=== PATIENT | female | born 1950 | race American Indian/Alaskan Native ===

== ENCOUNTER 2018-08-07 07:12 | Inpatient (IN) | payer MEDICARE ==
[2018-08-07 07:12] VITALS: BMI 40.8
[2018-08-07] MEDS ORDERED: Sodium Chloride 0.9% 1,000 ML IV STA (07:35)
[2018-08-07 07:50] LABS: BASO # 0.01 K/mm3 (0.0-2.0); BASO % 0.2 % (0.0-3.0); EOS # 0.2 (0.0-0.7); EOS % 3.9 % (1.5-5.0); HEMOGLOBIN 10.5 g/dL (12.0-16.0); LYMPH # 0.8 (1.2-3.4); LYMPH % 14.3 % (22.0-35.0); MEAN CELL VOLUME 85.5 fl (80.0-105.0); MEAN CORPUSCULAR HEMOGLOBIN 28.2 pg (25.0-35.0); MEAN CORPUSCULAR HGB CONC 32.9 g/dl (31.0-37.0); MEAN PLATELET VOLUME 10.2 fl (7.0-11.0); MONO # 0.6 (0.1-0.6); MONO % 11.1 % (1.0-6.0); RBC 3.73 10^6/uL (3.5-6.1); RED CELL DISTRIBUTION WIDTH 13.1 % (11.5-14.5); WHITE BLOOD COUNT 5.3 10^3/uL (4.5-11.0)
[2018-08-07 08:05] LABS: ALB/GLOB RATIO 1.3 (1.1-1.8); ALBUMIN 4.1 g/dL (3.0-4.8); CALCIUM 9.7 mg/dL (8.4-10.5)
--- NOTE | 2018-08-07 08:10 | ED PDOC ---
Arrival/HPI - General Chief Complaint: GI Problem Time Seen by Provider: 08/07/18 07:20 Historian: Patient - History of Present Illness Narrative History of Present Illness (Text): 08/07/18 08:01 67F w/ h/o hypertension, Iron deficient anemia, and CHF presenting to the Emergency Room with complaints of nausea, vomiting, and diarrhea since 12 days. Patient reports eating chicken prior to onset of symptoms but states no one else in the family became sick after similar food intake. Patient attempted to alleviate her symptoms with soup and Gatorade with minimal improvement. According to the patient, her last episode of diarrhea was 3 days ago and has been experiencing soft stool since then. She notes developing abdominal sor eness, lightheadedness and chills last night, prompting her to present to the Ed for evaluation. Patient denies any fevers, headache, dizziness, chest pain, shortness of breath, dyspnea on exertion, cough, diaphoresis, abdominal pain, blood in stool, hematemesis, back pain, neck pain, or any other complaints. PMD: Dr. Isha Park [employer] Supervisor: Dr. Wilson Poultry Debeaker: Dr. Crisostomo Time/Duration: > week Symptom Onset: Gradual Symptom Course: Unchanged Activities at Onset: Light Context: Home Past Medical History - Provider Review Nursing Documentation Reviewed: Yes - Infectious Disease Hx of Infectious Diseases: None - Tetanus Immunization Tetanus Immunization: Unknown - Cardiac Hx Congestive Heart Failure: Yes Hx Hypertension: Yes - Pulmonary Hx Respiratory Disorders: No - Neurological Hx Neurological Disorder: No - HEENT Hx Cataracts: Yes Hx Glaucoma: Yes - Renal Hx Renal Disorder: No - Endocrine/Metabolic Hx Endocrine Disorders: No - Hematological/Oncological Hx Blood Disorders: No - Integumentary Hx Dermatological Disorder: No - Musculoskeletal/Rheumatological Hx Falls: No - Gastrointestinal Hx Gastrointestinal Disorders: No - Genitourinary/Gynecological Hx Genitourinary Disorders: No - Psychiatric Hx Psychophysiologic Disorder: No Hx Substance Use: No - Suicidal Assessment Feels Threatened In Home Enviroment: No Family/Social History - Physician Review Nursing Documentation Reviewed: Yes Family/Social History: No Known Family HX Smoking Status: Never Smoked Hx Alcohol Use: No Hx Substance Use: No Allergies/Home Meds Allergies/Adverse Reactions: Allergies banana Allergy (Intermediate, Verified 08/07/18 14:21) SWELLING Home Medications: Home Meds Medication Instructions Recorded Confirmed Aspirin [Aspirin Chewable] 81 mg PO DAILY 07/25/18 08/07/18 Calcitriol [Rocaltrol] 0.5 mcg PO DAILY 07/25/18 08/07/18 Ergocalciferol (Vitamin D2) 1 cap PO MERRY 07/25/18 08/07/18 [Vitamin D2] Furosemide [Lasix] 40 mg PO DAILY 07/25/18 08/07/18 Iron Carb,Gl/FA/B12/C/Docusate 1 tab PO BID 07/25/18 08/07/18 [Ferralet 90 Tablet] Isosorbide Mononitrate [Imdur] 60 mg PO DAILY 07/25/18 08/07/18 Olmesartan [BenicarNf] 1 tab PO DAILY 07/25/18 08/07/18 amLODIPine [Norvasc] 10 mg PO DAILY 07/25/18 08/07/18 hydrALAZINE [Apresoline] 100 mg PO TID 07/25/18 08/07/18 Review of Systems - Physician Review All systems were reviewed & negative as marked: Yes - Review of Systems Constitutional: absent: Fevers Eyes: absent: Vision Changes Respiratory: absent: SOB, Cough Cardiovascular: absent: Chest Pain, TRAN Gastrointestinal: Diarrhea, Nausea, Vomiting. absent: Abdominal Pain, Stool Changes, Hematemesis Genitourinary Female: absent: Dysuria, Urine Output Changes Musculoskeletal: absent: Back Pain, Neck Pain Skin: absent: Rash Neurological: absent: Headache, Dizziness, Focal Weakness Endocrine: absent: Diaphoresis Psychiatric: absent: Anxiety Physical Exam Vital Signs Reviewed: Yes Vital Signs Temp Pulse Resp BP Pulse Ox 08/07/18 07:19 98.9 F 99 H 18 151/82 H 96 Temperature: Afebrile Blood Pressure: Normal Pulse: Regular Respiratory Rate: Normal Appearance: Positive for: Well-Appearing, Non-Toxic, Comfortable Pain Distress: None Mental Status: Positive for: Alert and Oriented X 3 - Systems Exam Head: Present: Atraumatic, Normocephalic Pupils: Present: PERRL Extroacular Muscles: Present: EOMI Conjunctiva: Present: Normal Mouth: Present: Dry Respiratory/Chest: Present: Clear to Auscultation, Good Air Exchange. No: Respiratory Distress, Accessory Muscle Use Cardiovascular: Present: Regular Rate and Rhythm, Murmurs (Blowing diastolic murmur, best heard around left lower sternum), Normal S1, S2 Abdomen: Present: Tenderness (Left upper quadrant ). No: Distention, Peritoneal Signs Back: Present: Normal Inspection Upper Extremity: Present: Normal Inspection. No: Cyanosis, Edema Lower Extremity: Present: Normal Inspection. No: Edema Neurological: Present: GCS=15, CN II-XII Intact, Speech Normal Skin: Present: Warm, Dry, Normal Color. No: Rashes Psychiatric: Present: Alert, Oriented x 3, Normal Insight, Normal Concentration Medical Decision Making ED Course and Treatment: 08/07/18 07:34 Impression: 67 year old female presents to the ED for evaluation of nausea, vomiting and diarrhea since 12 days. Differential Diagnosis included but are not limited to: Plan: -- Labs -- EKG -- Chest X-ray -- Reglan -- IV Fluids -- C-diff Toxin and Antigen -- Urine Culture -- Urinalysis --Toradol --Pepcid --CT a/p -- Reassess and disposition Prior Visits: Notes and results from previous visits were reviewed. Progress Notes: 08/07/18 09:32 Labs reviewed with patient noted to show no evidence leukocytosis or anemia worsened from baseline. Slightly elevated BNP was noted, but lower than baseline. Patient reassessed and still reports soreness in LUQ, but is reluctant to proceed with CT scan. She desires to attempt conservative therapy with medications and would rather follow up with a GI specialist. 08/07/18 10:35 Dr. Veronica Park(PCP) at the bedside stating patient should have CT scan performed and will contact Dr. Case(GI) for consult. Patient agreeable to CT. 08/07/18 12:[address] a/p results which is consistent with findings for gastroenteritis and states patient should stay for 24-48hrs for IV hydration. He states he discussed with Dr. Case who agrees with patient staying in the h ospital for further observation. He requests Dr. Crisostomo(nephrology) to called for renal. - Lab Interpretations Lab Results: 08/07/18 07:40 08/07/18 07:40 Lab Results 08/07/18 07:40: Sodium 141, Potassium 3.8, Chloride 106, Carbon Dioxide 24, Anion Gap 15, BUN 53 H, Creatinine 4.1 H, Est GFR ( Amer) 13, Est GFR (Non-Af Amer) 11, Random Glucose 106, Calcium 9.7, Magnesium 1.9, Total Bilirubin 0.7, AST 21, ALT 8, Alkaline Phosphatase 68, Troponin I 0.04 D, NT-Pro-B Natriuret Pep 1180 H, Total Protein 7.4, Albumin 4.1, Globulin 3.3, Albumin/Globulin Ratio 1.3 08/07/18 07:40: WBC 5.3, RBC 3.73, Hgb 10.5 L, Hct 31.9 L, MCV 85.5, MCH 28.2, MCHC 32.9, RDW 13.1, Plt Count 208, MPV 10.2, Neut % (Auto) 70.5 H, Lymph % (Auto) 14.3 L, [place] % (Auto) 11.1 H, Eos % (Auto) 3.9, Baso % (Auto) 0.2, Lymph # (Auto) 0.8 L, [place] # (Auto) 0.6, Eos # (Auto) 0.2, Baso # (Auto) 0.01, Absolute Neuts (auto) 3.76 I have reviewed the lab results: Yes - RAD Interpretation Narrative RAD Interpretations (Text): 08/07/18 08:26 Chest X-ray reviewed by radiologist, shows: FINDINGS: LUNGS: No active pulmonary disease. PLEURA: No significant pleural effusion identified, no pneumothorax apparent. CARDIOVASCULAR: Calcific atherosclerotic changes are seen related to the thoracic aorta. Stable cardiomegaly. No pulmonary vascular congestion. OSSEOUS STRUCTURES: No significant abnormalities. VISUALIZED UPPER ABDOMEN: Normal. OTHER FINDINGS: None. IMPRESSION: No interval acute cardiopulmonary disease appreciated. Cardiomegaly unchanged. No pulmonary vascular congestion. 08/07/18 12:28 CT of Abdomen/pelvis reviewed by radiologist, shows: FINDINGS: LOWER THORAX: Cardiomegaly. No pulmonary vascular congestion, pleural or pericardial effusion. LIVER: Unremarkable. No gross lesion or ductal dilatation. GALLBLADDER AND BILE DUCTS: Unremarkable. PANCREAS: Unremarkable. No gross lesion or ductal dilatation. SPLEEN: Unremarkable. ADRENALS: Unremarkable. No mass. KIDNEYS AND URETERS: Unremarkable. No hydronephrosis. No solid mass. VASCULATURE: Unremarkable. No aortic aneurysm. No aortic atherosclerotic calcification or mural plaque present. BOWEL: Stomach is collapsed not well evaluated. Further, evaluation of the gastrointestinal tract is limited due to the lack of oral contrast administration. No bowel obstruction evident. Uncomplicated sigmoid dive rticular disease appreciated. APPENDIX: Unremarkable. Normal appendix. PERITONEUM: Unremarkable. No free fluid. No free air. LYMPH NODES: Unremarkable. No enlarged lymph nodes. BLADDER: Unremarkable. REPRODUCTIVE: Unremarkable. BONES: No acute fracture. OTHER FINDINGS: None. IMPRESSION: No acute abdomen or pelvis findings. No radiodense urolithiasis, perinephric fluid collection or obstructive uropathy is appreciate bilaterally. The bilateral ureters appear normal caliber overall. Sigmoid diverticulosis without diverticulitis. No significant interval changes compared prior CT 01/20/2014. Radiology Orders: 08/07/18 07:34 CHEST PORTABLE [RAD] Stat Sorter [employer]: Radiologist - EKG Interpretation EKG Interpretation (Text): 08/07/18 07:24 EKG reviewed, shows NSR@92 bpm, LVH, LBBB, No ST elevations. Interpreted by ED Physician: Yes Type: 12 lead EKG - Medication Orders Current Medication Orders: Sodium Chloride (Sodium Chloride 0.9%) 1,000 mls @ 999 mls/hr IV .Q1H1M STA Stop: 08/07/18 08:35 Last Admin: 08/07/18 07:49 Dose: 999 mls/hr eMAR Start Stop Document 08/07/18 07:49 BB (Rec: 08/07/18 07:51 BB [id number]) Intravenous Solution Start Date 08/07/18 Start Time 07:51 Discontinued Medications Metoclopramide HCl (Reglan) 10 mg IVP STAT STA Stop: 08/07/18 07:36 Last Admin: 08/07/18 07:52 Dose: 10 mg IVP Administration Document 08/07/18 07:52 BB (Rec: 08/07/18 07:52 BB [id number]) Charges for Administration # of IVP Administrations 1 - Scribe Statement The provider has reviewed the documentation as recorded by the Scribe Franck Jiang. All medical record entries made by the Angelitaibchristopher were at my direction and personally dictated by me. I have reviewed the chart and agree that the record accurately reflects my personal performance of the history, physical exam, medical decision making, and the department course for this patient. I have also personally directed, reviewed, and agree with the discharge instructions and disposition. Disposition/Present on Arrival - Present on Arrival Any Indicators Present on Arrival: No History of DVT/PE: No History of Uncontrolled Diabetes: No Urinary Catheter: No History of Decub. Ulcer: No History Surgical Site Infection Following: None - Disposition Have Diagnosis and Disposition been Completed?: Yes Diagnosis: Gastroenteritis Disposition: HOSPITALIZED Disposition Time: 12:30 Patient Plan: Admission Condition: FAIR
[2018-08-07 08:14] LABS: TROPONIN I 0.04 ng/mL
--- NOTE | 2018-08-07 08:15 | RAD ---
Date of service: 08/07/2018 HISTORY: nausea emesis COMPARISON: Portable chest 01/11/2014. TECHNIQUE: 1 view obtained. FINDINGS: LUNGS: No active pulmonary disease. PLEURA: No significant pleural effusion identified, no pneumothorax apparent. CARDIOVASCULAR: Calcific atherosclerotic changes are seen related to the thoracic aorta. Stable cardiomegaly. No pulmonary vascular congestion. OSSEOUS STRUCTURES: No significant abnormalities. VISUALIZED UPPER ABDOMEN: Normal. OTHER FINDINGS: None. IMPRESSION: No interval acute cardiopulmonary disease appreciated. Cardiomegaly unchanged. No pulmonary vascular congestion.
[2018-08-07 09:46] LABS: URINE BILIRUBIN NEGATIVE (NEGATIVE); URINE BLOOD NEGATIVE (NEGATIVE); URINE GLUCOSE (UA) NEGATIVE (NEGATIVE); URINE LEUKOCYTE ESTERASE SMALL Leu/uL (NEGATIVE); URINE PROTEIN NEGATIVE mg/dL (<30 mg/dL); URINE UROBILINOGEN 0.2 E.U./dL (<1 E.U./dL)
[2018-08-07 09:47] LABS: URINE COLOR YELLOW (YELLOW)
[2018-08-07 09:54] LABS: URINE APPEARANCE SL CLOUDY (CLEAR); URINE BACTERIA MOD /hpf; URINE WBC 25 - 30 /hpf (0-6)
--- NOTE | 2018-08-07 12:09 | CT ---
Date of service: 08/07/2018 PROCEDURE: CT Abdomen and Pelvis without intravenous contrast HISTORY: LUQ pain COMPARISON: Unenhanced abdomen pelvis CT 01/20/2014. TECHNIQUE: Helical CT of the abdomen and pelvis was performed without oral or intravenous contrast as per referring physician request. Coronal and sagittal reformats were generated. Radiation dose: Total exam DLP = 1103.85 mGy-cm. This CT exam was performed using one or more of the following dose reduction techniques: Automated exposure control, adjustment of the mA and/or kV according to patient size, and/or use of iterative reconstruction technique. FINDINGS: LOWER THORAX: Cardiomegaly. No pulmonary vascular congestion, pleural or pericardial effusion. LIVER: Unremarkable. No gross lesion or ductal dilatation. GALLBLADDER AND BILE DUCTS: Unremarkable. PANCREAS: Unremarkable. No gross lesion or ductal dilatation. SPLEEN: Unremarkable. ADRENALS: Unremarkable. No mass. KIDNEYS AND URETERS: Unremarkable. No hydronephrosis. No solid mass. VASCULATURE: Unremarkable. No aortic aneurysm. No aortic atherosclerotic calcification or mural plaque present. BOWEL: Stomach is collapsed not well evaluated. Further, evaluation of the gastrointestinal tract is limited due to the lack of oral contrast administration. No bowel obstruction evident. Uncomplicated sigmoid diverticular disease appreciated. APPENDIX: Unremarkable. Normal appendix. PERITONEUM: Unremarkable. No free fluid. No free air. LYMPH NODES: Unremarkable. No enlarged lymph nodes. BLADDER: Unremarkable. REPRODUCTIVE: Unremarkable. BONES: No acute fracture. OTHER FINDINGS: None. IMPRESSION: No acute abdomen or pelvis findings. No radiodense urolithiasis, perinephric fluid collection or obstructive uropathy is appreciate bilaterally. The bilateral ureters appear normal caliber overall. Sigmoid diverticulosis without diverticulitis. No significant interval changes compared prior CT 01/20/2014.
[2018-08-07] MEDS ORDERED: Ergocalciferol 50,000 Intl Units Cap PO SCH (16:00)
[2018-08-07] MEDS ORDERED: Pneumococcal 23-Valent Vaccine IM ONE (18:25)
[2018-08-07] MEDS ORDERED: Influenza Vaccine 60 mcg/0.5 mL SYR (4YR UP) IM ONE (18:25)
--- NOTE | 2018-08-07 19:18 | CARD ---
APPROVED REPORT Date of service: 08/07/2018 EKG Measurement Heart [id number] <Conclusion> Sinus rhythm with 1st degree AV block Left axis deviation Intraventricular conduction delay of LBBB type Abnormal ECG
--- NOTE | 2018-08-07 20:47 | CP.PCM.CON ---
<KalReg choe - Last Filed: 08/07/18 21:08> History of Present Illness - History of Present Illness History of Present Illness: Reg Bowden PGY2 GI Consult Note for Dr. Case Reason for consult: gastroenteritis Ms. Lopez is a 67 year old female with a PMH of CHFrEF, HTN, Iron deficiency anemia and CKD who is admitted for nausea/vomiting and diarrhea for 12 days, that has worsened in the last few days. She states she has moderate abdominal discomfort associated with the symptoms. She denies any fevers/chills. Patient states she had some chicken prior to the symptoms but no one else who ate the chicken experienced similar symptoms. 12-pt ROS was reviewed and is otherwise unremarkable. PMD: Dr. Park PMH: as above PSH: cataracts Meds: as per MAR, reviewed Allergies: bananas SHx: denies drug use, EtOH or tobacco use FHx: non-contributory Review of Systems - Review of Systems All systems: reviewed and no additional remarkable complaints except (as per HPI) Past Patient History - Infectious Disease Hx of Infectious Diseases: None - Tetanus Immunizations Tetanus Immunization: Unknown - Past Social History Smoking Status: Never Smoked Alcohol: None Drugs: Denies - CARDIAC Hx Cardiac Disorders: Yes Hx Congestive Heart Failure: Yes Hx Hypertension: Yes - PULMONARY Hx Respiratory Disorders: No - NEUROLOGICAL Hx Neurological Disorder: No - HEENT Hx HEENT Problems: Yes Hx Cataracts: Yes (BILATERAL EYE. LEFT EYE HAD SX.R HAS CATARACT. BLURRY VISION) Hx Glaucoma: Yes - RENAL Hx Chronic Kidney Disease: No - ENDOCRINE/METABOLIC Hx Endocrine Disorders: No - HEMATOLOGICAL/ONCOLOGICAL Hx Blood Disorders: Yes Hx Anemia: Yes (IRON DEFICIENCY ANEMIA.SEES DR. VIDALES,GETS IRON INFUSIONS.LAST INF. 08-04-18) - INTEGUMENTARY Hx Dermatological Problems: No - MUSCULOSKELETAL/RHEUMATOLOGICAL Hx Musculoskeletal Disorders: No Hx Falls: No - GASTROINTESTINAL Hx Gastrointestinal Disorders: Yes (GASTROENTERITIS 08-07-18) Other/Comment: DEHYDRATION WITH 12 D OF N/V AND DIARRHEA. - GENITOURINARY/GYNECOLOGICAL Hx Genitourinary Disorders: No - PSYCHIATRIC Hx Psychophysiologic Disorder: No Hx Substance Use: No - SURGICAL HISTORY Hx Surgeries: Yes (BILATERAL EYE SURGERY.) Meds Allergies/Adverse Reactions: Allergies Allergy/AdvReac Type Severity Reaction Status Date / Time banana Allergy Intermediate SWELLING Verified 08/07/18 14:21 - Medications Medications: Current Medications Amlodipine Besylate (Norvasc) 10 mg PO DAILY [facility] Calcitriol (Rocaltrol) 0.25 mcg PO DAILY [facility] Ergocalciferol (Drisdol 50,000 Intl Units Cap) 1 cap PO Q7D [facility] Last Admin: 08/07/18 19:28 Dose: Not Given Home Med (Home Med) 2 unit PO DAILY [facility] Home Med (Home Med) 1 unit PO DAILY [facility] Hydralazine HCl (Apresoline) 100 mg PO TID [facility] Last Admin: 08/07/18 19:28 Dose: Not Given Isosorbide Mononitrate (Imdur Er) 30 mg PO DAILY [facility] Ondansetron HCl (Zofran Inj) 4 mg IVP Q8H PRN PRN Reason: Nausea/Vomiting Timolol Maleate (Timoptic 0.5% Ophth Soln) 1 drop OU BID [facility] Physical Exam - Constitutional Appears: Well, Non-toxic, No Acute Distress - Head Exam Head Exam: ATRAUMATIC, NORMAL INSPECTION, NORMOCEPHALIC - Eye Exam Eye Exam: EOMI, Normal appearance, PERRL Pupil Exam: NORMAL ACCOMODATION, PERRL - ENT Exam ENT Exam: Mucous Membranes Moist, Normal Exam - Neck Exam Neck exam: Positive for: Normal Inspection - Respiratory Exam Respiratory Exam: NORMAL BREATHING PATTERN. absent: Respiratory Distress - Cardiovascular Exam Cardiovascular Exam: RRR, +S1, +S2 - GI/Abdominal Exam GI & Abdominal Exam: Normal Bowel Sounds, Soft, Tenderness (diffuse) - Extremities Exam Extremities exam: Positive for: full ROM, normal inspection - Back Exam Back exam: FULL ROM, NORMAL INSPECTION - Neurological Exam Neurological exam: Alert, Oriented x3 - Skin Skin Exam: Dry, Intact, Normal Color, Warm Results - Vital Signs Recent Vital Signs: Last Vital Signs Temp 98.9 F 08/07/18 07:19 Pulse 59 L 08/07/18 18:02 Resp 18 08/07/18 18:02 BP 115/50 L 08/07/18 12:23 Pulse Ox 95 08/07/18 12:23 - Labs Result Diagrams: 08/07/18 07:40 08/07/18 07:40 Labs: Laboratory Results - last 24 hr 08/07/18 08/07/18 08/07/18 07:40 07:40 09:30 WBC 5.3 RBC 3.73 Hgb 10.5 L Hct 31.9 L MCV 85.5 MCH 28.2 MCHC 32.9 RDW 13.1 Plt Count 208 MPV 10.2 Neut % (Auto) 70.5 H Lymph % (Auto) 14.3 L [place] % (Auto) 11.1 H Eos % (Auto) 3.9 Baso % (Auto) 0.2 Lymph # (Auto) 0.8 L [place] # (Auto) 0.6 Eos # (Auto) 0.2 Baso # (Auto) 0.01 Absolute Neuts (auto) 3.76 Sodium 141 Potassium 3.8 Chloride 106 Carbon Dioxide 24 Anion Gap 15 BUN 53 H Creatinine 4.1 H Est GFR ( Amer) 13 Est GFR (Non-Af Amer) 11 Random Glucose 106 Calcium 9.7 Magnesium 1.9 Total Bilirubin 0.7 AST 21 ALT 8 Alkaline Phosphatase 68 Troponin I 0.04 D NT-Pro-B Natriuret Pep 1180 H Total Protein 7.4 Albumin 4.1 Globulin 3.3 Albumin/Globulin Ratio 1.3 Urine Color Yellow Urine Appearance Sl cloudy Urine pH 6.0 Ur Specific [place] 1.015 Urine Protein Negative Urine Glucose (UA) Negative Urine Ketones Negative Urine Blood Negative Urine Nitrate Negative Urine Bilirubin Negative Urine Urobilinogen 0.2 Ur Leukocyte Esterase Small H Urine RBC None Urine WBC 25 - 30 H Ur Epithelial Cells 6 - 8 H Urine Bacteria Mod Assessment & Plan - Assessment and Plan (Free Text) Assessment: 67 year old female with a PMH of CHFrEF, HTN, Iron deficiency anemia and CKD who is admitted for nausea/vomiting and diarrhea for 12 days, that has worsened in the last few days. GI consulted for gastroenteritis. CXR reveals cardiomegaly. EKG shows NSR w/ 1st degree heart block and LBBB. CT abd/pelvis shows sigmoid diverticulosis w/o diverticulitis. BNP is elevated, and there are no signs of sepsis at this time. Plan: - start CLD, advance as tolerated - monitor for BM's - stool for cdiff and stool cultures - blood and urine cultures drawn - recommend gentle hydration - can monitor off abx at this time - further recs per Dr. Case Case was reviewed and discussed with Dr. Case <Dre Case V - Last Filed: 08/08/18 00:09> Meds - Medications Medications: Current Medications Amlodipine Besylate (Norvasc) 10 mg PO DAILY [facility] Calcitriol (Rocaltrol) 0.25 mcg PO DAILY [facility] Ergocalciferol (Drisdol 50,000 Intl Units Cap) 1 cap PO Q7D [facility] Last Admin: 08/07/18 19:28 Dose: Not Given Home Med (Home Med) 2 unit PO DAILY [facility] Home Med (Home Med) 1 unit PO DAILY [facility] Hydralazine HCl (Apresoline) 100 mg PO TID [facility] Last Admin: 08/07/18 19:28 Dose: Not Given Isosorbide Mononitrate (Imdur Er) 30 mg PO DAILY [facility] Ondansetron HCl (Zofran Inj) 4 mg IVP Q8H PRN PRN Reason: Nausea/Vomiting Timolol Maleate (Timoptic 0.5% Ophth Soln) 1 drop OU BID [facility] Results - Vital Signs Recent Vital Signs: Last Vital Signs Temp 98.9 F 08/07/18 07:19 Pulse 59 L 08/07/18 18:02 Resp 18 08/07/18 18:02 BP 115/50 L 08/07/18 12:23 Pulse Ox 95 08/07/18 12:23 - Labs Result Diagrams: 08/07/18 07:40 08/07/18 07:40 Labs: Laboratory Results - last 24 hr 08/07/18 08/07/18 08/07/18 07:40 07:40 09:30 WBC 5.3 RBC 3.73 Hgb 10.5 L Hct 31.9 L MCV 85.5 MCH 28.2 MCHC 32.9 RDW 13.1 Plt Count 208 MPV 10.2 Neut % (Auto) 70.5 H Lymph % (Auto) 14.3 L [place] % (Auto) 11.1 H Eos % (Auto) 3.9 Baso % (Auto) 0.2 Lymph # (Auto) 0.8 L [place] # (Auto) 0.6 Eos # (Auto) 0.2 Baso # (Auto) 0.01 Absolute Neuts (auto) 3.76 Sodium 141 Potassium 3.8 Chloride 106 Carbon Dioxide 24 Anion Gap 15 BUN 53 H Creatinine 4.1 H Est GFR ( Amer) 13 Est GFR (Non-Af Amer) 11 Random Glucose 106 Calcium 9.7 Magnesium 1.9 Total Bilirubin 0.7 AST 21 ALT 8 Alkaline Phosphatase 68 Troponin I 0.04 D NT-Pro-B Natriuret Pep 1180 H Total Protein 7.4 Albumin 4.1 Globulin 3.3 Albumin/Globulin Ratio 1.3 Urine Color Yellow Urine Appearance Sl cloudy Urine pH 6.0 Ur Specific [place] 1.015 Urine Protein Negative Urine Glucose (UA) Negative Urine Ketones Negative Urine Blood Negative Urine Nitrate Negative Urine Bilirubin Negative Urine Urobilinogen 0.2 Ur Leukocyte Esterase Small H Urine RBC None Urine WBC 25 - 30 H Ur Epithelial Cells 6 - 8 H Urine Bacteria Mod Attending/Attestation - Attestation I have personally seen and examined this patient.: Yes I have fully participated in the care of the patient.: Yes I have reviewed all pertinent clinical information: Yes Notes (Text): This patient was seen and evaluated earlier along with the resident. This patient admitted with episodes of diarrhea lasting for more than 10 days feeling weak and also cramping abdominal pain. CT scan was reviewed. Acute kidney injury on the top of chronic kidney disease Follow-up of stool studies will consider empiric antibiotic coverage thank you very much for allowing us to precipitate in the care of the patient 08/07/18 23:57
--- NOTE | 2018-08-07 21:47 | HP ---
DATE OF EXAM: 08/07/2018 HISTORY OF PRESENT ILLNESS: A 67-year-old female. The patient was brought to the ER by family at her request when she noted that after 7-10 days of loose soft watery stools, she has been developing some abdominal discomfort. She has also had some nausea and vomiting with this. She states that there has been no fever or chills. ALLERGIES: BANANA. SOCIAL HISTORY: She is a nonsmoker, nondrinker, and nondrug user. PAST MEDICAL HISTORY: Hypertension, chronic renal disease, secondary hyperparathyroidism, chronic anemia, and cardiomegaly. HOME MEDICATIONS: Consist of Apresoline, amlodipine, olmesartan, Imdur, Ferralet, Lasix, vitamin D2, Rocaltrol, and Ecotrin. REVIEW OF SYSTEMS: A 10 systems are reviewed. Pertinent findings is that there is some discomfort and tenderness in the midepigastric area. PHYSICAL EXAMINATION: VITAL SIGNS: Show a temperature of 98.9, pulse is 59 and 92, blood pressure is 151/82, and she is saturating at 95% on room air. GENERAL: She is alert and oriented x3. LUNGS: Clear. HEART: S1 and S2 rhythm. ABDOMEN: Obese, soft with positive bowel sounds. There is some mild epigastric tenderness. No rebound. EXTREMITIES: Show no evidence of edema. NEUROLOGIC: She is alert and oriented x3. LABORATORY DATA: Shows a WBC of 5.3, RBC 3.73, hemoglobin 10.5, hematocrit 31.9, and platelet count is 208,000. Chemistry shows a sodium of 141, potassium 3.8, chloride 106, BUN is 53, and creatinine is 4.1. LFTs are normal. BNP is 1180. Troponin is 0.04. Urinalysis shows small leukocyte esterase with 25-30 WBC and moderate bacteria. Chest x-ray shows cardiomegaly. CAT scan of the abdomen and pelvis is pending. Electrocardiogram is showing a sinus rhythm with first-degree A-V block. IMPRESSION: A 67-year-old female with 7-10 days of watery loose stools after eating [place] fried chicken, although other members of the family ate the same food and did not have any abnormal reactions as per the patient and her sister. She has been having nausea with some vomiting, now today developed some epigastric abdominal pain. 1. Gastroenteritis. 2. Chronic renal disease. 3. Chronic anemia. 4. Hypertension. 5. Secondary hyperparathyroidism. PLAN: We will request GI evaluation. Await results of the CAT scan of the abdomen and pelvis and also request a Renal consult, also will be getting urine studies and culture and checking stool culture and stool for C. diff. The patient will be placed on a clear liquid diet. Isha Park MD
[2018-08-08] MEDS: metroNIDAZOLE IV 500 mg/100 ml 500 MG/100 ML BAG IVPB SCH ×3 (05:50→21:41)
--- NOTE | 2018-08-08 07:15 | CP.PCM.PN ---
<Flora Granger - Last Filed: 08/08/18 11:25> Subjective - Date & Time of Evaluation Date of Evaluation: 08/08/18 Time of Evaluation: 07:15 - Subjective Subjective: Flora Granger, PGY2, GI Progress Note for Dr Case: Patient seen and examined at bedside. No acute events overnight. Patient reports some nausea, denies vomiting and diarrheal episodes since admission. Reports semi-formed BM yesterday afternoon. Tolerating CLD, tea/jello. Objective - Vital Signs/Intake and Output Vital Signs (last 24 hours): Temp Pulse Resp BP Pulse Ox 98.9 F 59 L 18 115/50 L 95 08/07/18 07:19 08/07/18 18:02 08/07/18 18:02 08/07/18 12:23 08/07/18 12:23 Intake and Output: 08/08/18 08/08/18 06:59 18:59 Intake Total 540 Balance 540 - Medications Medications: Current Medications Amlodipine Besylate (Norvasc) 10 mg PO DAILY [facility] Calcitriol (Rocaltrol) 0.25 mcg PO DAILY [facility] Ergocalciferol (Drisdol 50,000 Intl Units Cap) 1 cap PO Q7D [facility] Last Admin: 08/07/18 19:28 Dose: Not Given Home Med (Home Med) 2 unit PO DAILY [facility] Home Med (Home Med) 1 unit PO DAILY [facility] Hydralazine HCl (Apresoline) 100 mg PO TID [facility] Last Admin: 08/07/18 19:28 Dose: Not Given Metronidazole (Flagyl) 500 mg in 100 mls @ 100 mls/hr IVPB Q8 [facility]; Protocol Last Admin: 08/08/18 05:50 Dose: 100 mls/hr Ceftriaxone Sodium (Rocephin 1 Gram Ivpb) 1 gm in 100 mls @ 100 mls/hr IVPB DAILY [facility]; Protocol Isosorbide Mononitrate (Imdur Er) 30 mg PO DAILY [facility] Ondansetron HCl (Zofran Inj) 4 mg IVP Q8H PRN PRN Reason: Nausea/Vomiting Timolol Maleate (Timoptic 0.5% Ophth Soln) 1 drop OU BID [facility] - Labs Labs: 08/07/18 07:40 08/07/18 07:40 - Constitutional Appears: Non-toxic, No Acute Distress - Head Exam Head Exam: ATRAUMATIC, NORMOCEPHALIC - Eye Exam Eye Exam: EOMI, PERRL. absent: Conjunctival injection, Nystagmus, Scleral icterus Pupil Exam: NORMAL ACCOMODATION, PERRL. absent: Irregular, Miosis, Unequal - ENT Exam ENT Exam: Mucous Membranes Moist - Neck Exam Neck Exam: Full ROM - Respiratory Exam Respiratory Exam: Clear to Ausculation Bilateral, NORMAL BREATHING PATTERN. absent: Accessory Muscle Use, Rhonchi, Wheezes, Respiratory Distress - Cardiovascular Exam Cardiovascular Exam: RRR, +S1, +S2. absent: Murmur - GI/Abdominal Exam GI & Abdominal Exam: Soft, Tenderness (mild), Normal Bowel Sounds. absent: Distended, Firm, Guarding, Rigid, Mass, Organomegaly - Extremities Exam Extremities Exam: Normal Inspection. absent: Calf Tenderness, Pedal Edema - Neurological Exam Neurological Exam: Alert, Awake, Oriented x3 - Psychiatric Exam Psychiatric exam: Normal Affect, Normal Mood - Skin Skin Exam: Normal Color, Warm Assessment and Plan - Assessment and Plan (Free Text) Assessment: # Nausea, vomiting, diarrhea 2/2 likely viral/bacterial gastroenteritis vs Cdiff # CHFrEF # HTN # iron deficiency anemia # QUENITN on CKD - CT abd/pelvis shows sigmoid diverticulosis w/o diverticulitis. - CLD, can advance as tolerated - awaiting cdiff, stool culture results - will start rocephin and flagyl - Further recs per Dr Case. Case was reviewed and discussed with Dr. Case <Dre Case V - Last Filed: 08/08/18 21:59> Objective - Vital Signs/Intake and Output Vital Signs (last 24 hours): Temp Pulse Resp BP Pulse Ox 98.4 F 53 L 20 131/74 97 08/08/18 14:00 08/08/18 14:00 08/08/18 14:00 08/08/18 14:00 08/08/18 14:00 Intake and Output: 08/08/18 08/09/18 18:59 06:59 Intake Total 720 480 Balance 720 480 - Medications Medications: Current Medications Amlodipine Besylate (Norvasc) 10 mg PO DAILY [facility] Last Admin: 08/08/18 11:04 Dose: 10 mg Calcitriol (Rocaltrol) 0.5 mcg PO DAILY [facility] Ergocalciferol (Drisdol 50,000 Intl Units Cap) 1 cap PO Q7D [facility] Last Admin: 08/07/18 19:28 Dose: Not Given Home Med (Home Med) 2 unit PO DAILY [facility] Last Admin: 08/08/18 15:32 Dose: 2 unit Home Med (Home Med) 1 unit PO BID [facility] Last Admin: 08/08/18 17:54 Dose: 1 unit Hydralazine HCl (Apresoline) 100 mg PO TID [facility] Last Admin: 08/08/18 15:19 Dose: 100 mg Metronidazole (Flagyl) 500 mg in 100 mls @ 100 mls/hr IVPB Q8 [facility]; Protocol Last Admin: 08/08/18 21:41 Dose: 100 mls/hr Ceftriaxone Sodium (Rocephin 1 Gram Ivpb) 1 gm in 100 mls @ 100 mls/hr IVPB DAILY [facility]; Protocol Last Admin: 08/08/18 11:05 Dose: 100 mls/hr Isosorbide Mononitrate (Imdur Er) 30 mg PO DAILY [facility] Last Admin: 08/08/18 11:05 Dose: 30 mg Ondansetron HCl (Zofran Inj) 4 mg IVP Q8H PRN PRN Reason: Nausea/Vomiting Timolol Maleate (Timoptic 0.5% Oph Soln) 1 drop OU BID [facility] Last Admin: 08/08/18 17:46 Dose: 1 drop - Labs Labs: 08/08/18 07:30 08/08/18 07:13 Attending/Attestation - Attestation I have personally seen and examined this patient.: Yes I have fully participated in the care of the patient.: Yes I have reviewed all pertinent clinical information, including history, physical exam and plan: Yes Notes (Text): This patient was seen in the weighted with resident earlier today. This is an addendum to the GI progress report dictated by the medical esthetician. Patient was admitted with acute diarrhea abdominal discomfort CT showed possibility of mild diverticulitis. Gastroenteritis should be considered in the differential diagnosis. Follow-up stool studies continue clear liquid diet continue the antibiotics patient also has AK I on CKD We will slowly advance the diet 08/08/18 21:58
[2018-08-08 07:54] LABS: BASO # 0.01 K/mm3 (0.0-2.0); BASO % 0.2 % (0.0-3.0); EOS # 0.4 (0.0-0.7); EOS % 8.3 % (1.5-5.0); HEMOGLOBIN 10.2 g/dL (12.0-16.0); LYMPH # 1.1 (1.2-3.4); MEAN CELL VOLUME 86.6 fl (80.0-105.0); MEAN CORPUSCULAR HEMOGLOBIN 28.5 pg (25.0-35.0); MEAN CORPUSCULAR HGB CONC 32.9 g/dl (31.0-37.0); MEAN PLATELET VOLUME 9.5 fl (7.0-11.0); MONO # 0.4 (0.1-0.6); MONO % 8.6 % (1.0-6.0); RBC 3.58 10^6/uL (3.5-6.1); RED CELL DISTRIBUTION WIDTH 13.2 % (11.5-14.5); WHITE BLOOD COUNT 4.2 10^3/uL (4.5-11.0)
[2018-08-08 09:13] LABS: ALB/GLOB RATIO 1.2 (1.1-1.8); ALBUMIN 3.5 g/dL (3.0-4.8)
[2018-08-08] MEDS ORDERED: FERRALET PO SCH (10:00)
[2018-08-08] MEDS: cefTRIAXone 1 gm 1 GM/100 ML BAG IVPB SCH (11:05)
--- NOTE | 2018-08-08 14:14 | PN ---
DATE: 08/08/2018 SUBJECTIVE: A 67-year-old female, resting more comfortably this morning. She says that she is feeling a bit better but still having episodes of waves of nausea. PHYSICAL EXAMINATION: VITAL SIGNS: Her temperature is 98.9, her pulse is 86, her blood pressure is 115/50, oxygen sat is reported at 95% on room air, respiratory rate is 18. GENERAL: She is alert and oriented x3. NECK: Supple.' LUNGS: Clear. HEART: S1, S2 rhythm. ABDOMEN: Obese, soft with positive bowel sounds. EXTREMITIES: No evidence of edema. LABORATORY DATA: WBC is 4.2, RBC Is 3.58, hemoglobin is 10.2, hematocrit is 31, platelet count is 160. Chemistry shows sodium 141, potassium 4.3, chloride 110, the BUN is 55, the creatinine is 4. LFTs are normal. Urine culture is pending. MEDICATIONS: Currently, she is on Apresoline, Drisdol, Flagyl, Imdur, Norvasc, Rocaltrol. She is on Rocephin IV and Flagyl. She is on Timolol eye drops, Zofran p.r.n. She is on olmesartan and Ferralet. ASSESSMENT: 1. Possible acute gastroenteritis. 2. Diverticulosis. 3. Chronic renal disease with acute insult. 4. Hypertension. 5. Secondary hyperparathyroidism. PLAN: Continue current level of care. Await cultures. Continue to monitor the patient. Follow with recommendations from the consultants. Isha Park MD
[2018-08-08] MEDS: OLMESARTAN 20 MG PO SCH (15:32)
--- NOTE | 2018-08-08 16:34 | US ---
PROCEDURE: Lower extremity ORVILLE exam HISTORY: Peripheral vascular disease with pain and claudication. PHYSICIAN(S): Gabriel Monique MD. FINDINGS: The resting ORVILLE's are mildly abnormal but may be inaccurate: Right, 0.80 and left, 0.90 The brachial systolic pressures are symmetric. The low thigh pressures and waveforms are relatively normal. The calf PVR waveforms augment normally. The ankle and metatarsal waveforms are moderately blunted but pulsatile, greater on the right than the left. This is consistent with bilateral popliteal, trifurcation, and/or tibial disease IMPRESSION: 1. Bilateral popliteal, trifurcation, and/or tibial disease 2. Mildly abnormal resting ABIs. The resting ABIs may be inaccurate due to calcified vessels
[2018-08-08] MEDS: FERROUS SULFATE 325 MG PO SCH (17:54)
--- NOTE | 2018-08-08 20:12 | CON ---
DATE OF CONSULTATION: 08/08/2018 REASON FOR CONSULTATION: Acute kidney injury, superimposed on chronic kidney disease stage III/IV, diarrhea, dehydration. HISTORY OF PRESENT ILLNESS: A 67-year lady known to me from outpatient followup. The patient was brought to the emergency room by family members because of weakness, dizziness. She gives a history of for almost 10 days of severe diarrhea, nausea, vomiting, decreased p.o. intake. She thinks it might be related to something to the food that she ate. In the emergency room, she was found to be normotensive, her blood pressure was 161/82. Her WBC count was 5. Her potassium was low at 3.8. Her BUN was 53 and her creatinine of 4.1. She has a history of chronic kidney disease stage III/IV. Her baseline creatinine is around 2.9. She denies any history of any fever. She denies any history of any abdominal pain. She denies any changes in her urine output.. PAST MEDICAL AND SURGICAL HISTORY: Severe hypertension, left ventricular hypertrophy, hypertensive heart disease, chronic kidney disease stage III/IV, morbid obesity, FAMILY HISTORY: Hypertension, kidney disease. SOCIAL HISTORY: No smoking, no alcohol use, no IV drug abuse. ALLERGIES: NO KNOWN DRUG ALLERGIES. MEDICATIONS AT HOME: Hydralazine 100 t.i.d., amlodipine 10, Benicar 40, isosorbide 60, Lasix 40 daily, calcitriol 0.5 daily, aspirin 81. REVIEW OF SYSTEMS: All systems are reviewed, pertinent positives as mentioned in the history of presenting illness, rest unremarkable. PHYSICAL EXAMINATION: GENERAL: Elderly lady, sitting in bed, currently in no acute distress. VITAL SIGNS: Blood pressure 140/55, heart rate 60, respiratory rate 18, temperature 98.9. HEENT: Normocephalic, atraumatic, positive pallor. NECK: Supple, no JVD. LUNGS: Bilateral equal air entry, no rales, no rhonchi. CARDIAC: S1 and S2, regular rate rhythm, no murmur, no rub. ABDOMEN: Obese, distended, soft, nontender, bowel sounds present. EXTREMITIES: No lower extremity edema. INTAKE AND OUTPUT: 540/not charted. LABORATORY DATA: WBC 4, hemoglobin 10, hematocrit 31, platelets 160. Sodium 141, potassium 4.3, chloride 110, CO2 of 23, BUN 55, creatinine 4, glucose 84, calcium 9. AST 14, ALT 14, albumin 3.5. Urinalysis ,yellow, slightly cloudy, pH 61, 0-6 g 07/13/2014 protein negative, blood negative, ketones negative, leukocyte esterase small, wbc's 25-30. C. diff, negative. CT of the abdomen and pelvis, no acute abdomen or pelvic findings. No radiodense urolithiasis. Sigmoid diverticulosis without diverticulitis. CURRENT MEDICATIONS: Hydralazine 100 t.i.d., olmesartan 20 mg 2 tablets daily, Ferralet 90 daily, isosorbide 30, amlodipine 10, Rocaltrol 0.25, Rocephin 1 g daily, Zofran, Flagyl 500 every 8 hours. ASSESSMENT: 1. Acute kidney injury superimposed on chronic kidney disease stage III/IV, baseline creatinine around 2.9. 2. Suspect prerenal azotemia. 3. Gastroenteritis. 4. Anemia of chronic kidney disease. 5. Secondary hyperparathyroidism. 6. Severe hypertension. 7. Obesity. PLAN: 1. Agree with holding Lasix for the time being. 2. Continue antihypertensives including hydralazine 100 t.i.d. amlodipine 10, olmesartan 40, isosorbide 30. 3. The patient was on Rocaltrol 0.5 mcg at home, will change it to 0.5. 4. Check phosphorus levels. 5. Advance diet as tolerated. 6. 24 hours urine for protein and creatinine clearance starting tomorrow morning. 7. Continue antibiotics. Angela Crisostomo MD
[2018-08-09] MEDS: metroNIDAZOLE IV 500 mg/100 ml 500 MG/100 ML BAG IVPB SCH ×3 (05:10→22:28)
[2018-08-09 07:34] LABS: BASO # 0.02 K/mm3 (0.0-2.0); BASO % 0.5 % (0.0-3.0); EOS # 0.5 (0.0-0.7); EOS % 13.5 % (1.5-5.0); HEMOGLOBIN 10.1 g/dL (12.0-16.0); LYMPH # 0.8 (1.2-3.4); LYMPH % 20.8 % (22.0-35.0); MEAN CELL VOLUME 85.6 fl (80.0-105.0); MEAN CORPUSCULAR HGB CONC 32.7 g/dl (31.0-37.0); MEAN PLATELET VOLUME 9.5 fl (7.0-11.0); MONO # 0.3 (0.1-0.6); MONO % 6.5 % (1.0-6.0); RBC 3.61 10^6/uL (3.5-6.1)
[2018-08-09 07:51] LABS: CALCIUM 9.2 mg/dL (8.4-10.5)
[2018-08-09] MEDS: FERROUS SULFATE 325 MG PO SCH ×2 (09:50→18:00)
[2018-08-09] MEDS: OLMESARTAN 20 MG PO SCH (09:50)
[2018-08-09] MEDS: cefTRIAXone 1 gm 1 GM/100 ML BAG IVPB SCH (09:53)
--- NOTE | 2018-08-09 11:55 | PN ---
DATE: 08/09/2018 SUBJECTIVE: The patient is currently seen on 5R. She is sitting in bed. She is complaining that she is not getting enough liquids or fluid to eat. She states her nausea and vomiting have resolved. She no longer has any diarrhea. She is asking when she can go home. The patient is currently not receiving any IV fluid hydration. She does remain on empiric antibiotic therapy. Her stool for C. diff was negative. It is felt that she has a viral gastroenteritis with dehydration leading to her acute rise in BUN and creatinine. MEDICATIONS: Medication list reviewed. The patient is on hydralazine, vitamin D, Flagyl, olmesartan, ferrous sulfate, Imdur, Norvasc, calcitriol, Rocephin, Timoptic and Zofran. OBJECTIVE: INTAKE/OUTPUT: Intake is 1440, output is not charted. VITAL SIGNS: Blood pressure 157/79, earlier blood pressure was 131/74, pulse of 61, temperature of 98.1, respiratory rate of 18 with an oxygen saturation of 98%. HEENT: Shows her to be normocephalic, atraumatic. Conjunctivae are pink. Sclerae nonicteric. NECK: Supple. No neck vein distention. CHEST: Clear to auscultation and percussion. No rales, rhonchi or wheezing. CARDIOVASCULAR: Shows a regular rate and rhythm without audible murmurs, rubs or gallops. ABDOMEN: Soft. Bowel sounds normal. No rebound, guarding, or masses. EXTREMITIES: Show no lower extremity cyanosis, clubbing, or edema. LABORATORY DATA AND IMAGING: CBC; white blood cell count today 4.0, hemoglobin 10.1 stable with a platelet count of 190,000. Chemistry showed normal electrolytes. BUN is down to 49 from 53, creatinine is down to 3.7 from 4.1. Her baseline creatinine per outpatient records is 2.[address] Crisostomo's note. Urine showed white blood cells and bacteria. Microbiology; stool for C. diff is negative. I do not see any urine or blood cultures. CT scan of the abdomen showed no acute findings. The kidneys were unremarkable. ASSESSMENT: 1. Acute renal failure superimposed on chronic kidney disease, stage III/IV. Baseline creatinine 2.9. This is in the setting of volume depletion, dehydration, nausea, vomiting, and diarrhea. 2. Likely viral gastroenteritis, as per gastrointestinal notes. Stool for Clostridium difficile was negative. It appears that her symptoms are resolving. 3. History of anemia secondary to chronic kidney diseases. Hemoglobin is stable at 10.1. 4. History of hypertension with hypertensive nephrosclerosis, currently stable. Perhaps hold angiotensin receptor clarissa therapy until her creatinine returns back to baseline levels. I will do this if she has any increase in her creatinine. 5. History of secondary hyperparathyroidism. The patient's phosphorus level was excellent at 4.1, the patient remains on a renal diet. She is not taking binder therapy. 6. History of obesity. Continue diet exercise and weight loss. PLAN: 1. The patient states she will like to go home. Await this decision up to LENORA [place]. From my standpoint, as long as the patient remains well hydrated and she no longer has any diarrhea or nausea, vomiting, as she now reason that she cannot go home even though her creatinine is slightly above her baseline levels, this can be followed in the outpatient setting and may repeat labsin one weeks time for creatinine would be back into the upper 2 range. 2. A 24-hour urine was ordered, but uncollected. This can be done in the outpatient setting. 3. Continue off Lasix at this point in time. I would only restart Lasix if the patient develops any lower extremity edema. 4. Complete course of antibiotic therapy. If she has viral gastroenteritis and perhaps antibiotics can be discontinued shortly. Yaakov Schwab MD [facility]
--- NOTE | 2018-08-09 22:57 | PN ---
DATE: 08/09/2018 SUBJECTIVE: A 67-year-old female. This morning the patient is feeling a little bit better. She says there is minimum nausea and she is hungry. OBJECTIVE: VITAL SIGNS: Her temperature is 98, her pulse is 61, her blood pressure is 157/79, respiratory rate of 18 and oxygen saturation of 98% on room air. GENERAL: She is alert and oriented x3. LUNGS: Clear. HEART: S1, S2 rhythm. ABDOMEN: Soft with positive bowel sounds. EXTREMITIES: No evidence of edema. LABORATORY DATA: She has a WBC of 4, RBC 3.61, hemoglobin 10.1, hematocrit 30.9, platelet count 190. Chemistry shows sodium 141, potassium 4.3, chloride 109, BUN is 49, the creatinine is 3.7 and calcium is 9.2. C. diff studies were negative. MEDICATIONS: At the present time, the patient is on Apresoline, Drisdol, Imdur, Norvasc, Rocaltrol, Timolol eye drops, Zofran p.r.n. She is also on Rocephin and Flagyl IV and she is on home medications consisting of ferrous sulfate and olmesartan. ASSESSMENT: 1. Acute gastroenteritis. 2. Chronic renal disease with acute insult. 3. Hypertension. 4. Valvular heart disease. PLAN: She is currently being followed by Renal and GI and extremity ultrasound showed evidence of bilateral popliteal trifurcation and/or tibial disease with mildly abnormal resting ABIs. Continue current level of care. Review antibiotic therapy and diet with GI and advance as tolerated. Isha Park MD
--- NOTE | 2018-08-09 23:08 | PN ---
DATE: 08/09/2018 SUBJECTIVE: This patient was seen and evaluated earlier. The patient feels much better family was at bedside. The patient was feeling hungry. No diarrhea. Abdominal pain has decreased and she wants the solid food. PHYSICAL EXAMINATION: VITAL SIGNS: Temperature 98.7, blood pressure 111/67, respirations 20, pulse 84, and O2 saturation 98. HEENT: Atraumatic and anicteric. NECK: Supple. HEART: S1 and S2 heard. LUNGS: Bilateral air entry present. ABDOMEN: Soft. There was no tenderness. NEUROLOGIC: Alert and oriented. Moves all the extremities. LABORATORY DATA: Hemoglobin 10.1, hematocrit 30.9, WBC 4, and platelet 190. Chemistry shows BUN 49 and creatinine 3.7. IMPRESSION: This is a 67-year-old patient admitted with diarrhea, abdominal pain, and nauseous more than 11 days period to this hospitalization. CAT showed some streaking inflammatory changes in the sigmoid colon area suggestive of diverticulitis. The patient had also has history of chronic kidney disease, worsening of the renal function suggestive of possible acute kidney injury on the top of chronic kidney disease and the patient was empirically started on Flagyl and also ceftriaxone, clinically getting better. The patient is tolerating liquid diet. RECOMMENDATIONS: 1. Advance diet to low-residue soft diet. 2. Complete the antibiotic course, these can be switched over to low-dose ciprofloxacin 250 mg b.i.d. with Flagyl 500 mg t.i.d. 3. Continue the Nephrology followup. 4. The patient would benefit from elective colonoscopic evaluation. 5. Would also request for iron studies and B12, folate to further evaluate the chronic anemia normocytic anemia suggestive of possible secondary to the chronic kidney disease and we need to rule out the underlying renal insufficiency and B12 or folate insufficiency, would request for iron studies and B12 and folate. The patient's stool for C. diff sent was negative. No further diarrhea since admission. We will continue to closely follow up her care and suggest further management based on the clinical course. Dre Case MD
[2018-08-10 09:02] LABS: U CREAT 24HOUR URINE 1723.8 MG/24HR (800-1800)
[2018-08-10 09:03] LABS: URINE 24 HOUR TOTAL PROTEIN 114 mg/24HR (42-225); URINE TOTAL VOLUME 875 mL (800-1400)
[2018-08-10] MEDS: FERROUS SULFATE 325 MG PO SCH ×2 (10:10→18:22)
[2018-08-10] MEDS: cefTRIAXone 1 gm 1 GM/100 ML BAG IVPB SCH (10:10)
--- NOTE | 2018-08-10 10:31 | PN ---
DATE: 08/10/2018 SUBJECTIVE: A 67-year-old female resting comfortably this morning. She states that she is feeling a little bit better today; however, not completely comfortable tolerating diet and she is still feeling a bit weak. Nurse staff relates that there were no particular problems during the night. PHYSICAL EXAMINATION VITAL SIGNS: Her temperature is 98.4, her pulse is 61, her blood pressure is 135/72, respiratory rate is 20 and oxygen saturation is 96%. GENERAL: She is alert and oriented x3. LUNGS: Clear. HEART: S1 and S2, rhythm. ABDOMEN: Obese and soft with positive bowel sounds. EXTREMITIES: Show no evidence of edema. LABORATORY DATA: Her serum creatinine this morning is 3.7. A urine culture shows probable contamination. ASSESSMENT AND PLAN: She is currently receiving antibiotics and being followed by gastroenterology with presumptive diagnosis of acute gastroenteritis. She also has chronic renal disease being followed by nephrology, a 24-hour creatinine clearance is in the process. We will continue her current meds at this time and follow up per labs. Isha Park MD
[2018-08-10] MEDS: OLMESARTAN 20 MG PO SCH (14:11)
--- NOTE | 2018-08-10 14:50 | PN ---
DATE: 08/10/2018 SUBJECTIVE: The patient is currently seen sitting up in bed in no acute distress. No further GI fluid losses. No nausea, vomiting or diarrhea. The patient remains on empiric antibiotic therapy but all cultures are negative. The patient states that she is attempting to drink more. Her urine is still dark in color. A 24 urines done showed a creatinine clearance of 31 mL per minute with serum creatinine of 3.7 and only 114 mg of protein in the urine. MEDICATIONS: Medication list reviewed. The patient is currently on hydralazine, vitamin D, Flagyl, olmesartan, ferrous sulfate, Imdur, Norvasc, Rocaltrol, Rocephin, Timoptic eyedrops and Zofran p.r.n. OBJECTIVE: INTAKE/OUTPUT: Intake 1200 and output 400. VITAL SIGNS: Blood pressure 135/72, pulse of 61, temperature of 98.4, respiratory rate of 20 and oxygen saturation of 96%. HEENT: Normocephalic and atraumatic. Conjunctivae are pink. Sclerae nonicteric. NECK: Supple. No neck vein distention. CHEST: Clear to auscultation and percussion. No rales, rhonchi or wheezing. CARDIOVASCULAR: Shows regular rate and rhythm without audible murmurs, rubs or gallops. ABDOMEN: Soft. Moderate obesity. Bowel sounds normal. No rebound, guarding or masses. EXTREMITIES: Show no lower extremity cyanosis, clubbing or edema. LABORATORY DATA AND IMAGING: No CBC done today. Chemistries; repeat creatinine is 3.7. A 24 hour urine creatinine clearance 31 mL per minute with a serum creatinine of 3.7 and 114 mg of protein in the urine. Microbiology urine was a contaminated specimen. C. diff was negative. No blood cultures were done. CT of the abdomen showed no acute findings. The kidneys are unremarkable. ASSESSMENT: Acute renal failure superimposed on chronic kidney disease stage III with a baseline creatinine in the 2.[address] Crisostomo's note. This all in the setting of dehydration, volume depletion secondary to nausea, vomiting and diarrhea likely a viral gastroenteritis. 1. Possible viral gastroenteritis as per Gastroenterology notes. Stool Clostridium difficile was negative. The patient's symptoms appear to be markedly improved. 2. History of anemia secondary to chronic kidney disease. Last hemoglobin was 10.1. 3. History of hypertension with hypertensive nephrosclerosis. As discussed in the previous notes, since her creatinine is remaining well above her baseline range, I will hold her angiotensin receptor clarissa till her creatinine returns back to baseline. Her blood pressure control appears to be acceptable on calcium channel clarissa therapy and hydralazine. 4. History of secondary hyperparathyroidism. Phosphorus levels have remained normal. Last phosphorus level was 4.1. The patient will continue renal diet. Presently she is not on binder therapy. 5. History of obesity. Continue diet, exercise and weight loss in the outpatient setting. PLAN: 1. Discussed with Dr. Park. Discussed with the patient. The patient needs to significantly increase her p.o. fluid intake otherwise IV fluids will need to be restarted. 2. Reviewed with her 24-hour urine. 3. Continue off Lasix. No lower extremity edema. 4. Duration of antibiotics with negative cultures and likely a viral gastroenteritis. I will leave this decision up to Dr. Park and GI. 5. Continue to monitor labs on a daily basis. Yaakov Schwab MD MTDD
[2018-08-11 08:03] LABS: HEMOGLOBIN 8.9 g/dL (12.0-16.0); MEAN CELL VOLUME 86.6 fl (80.0-105.0); MEAN CORPUSCULAR HEMOGLOBIN 27.8 pg (25.0-35.0); MEAN CORPUSCULAR HGB CONC 32.1 g/dl (31.0-37.0); MEAN PLATELET VOLUME 9.1 fl (7.0-11.0); RBC 3.2 10^6/uL (3.5-6.1); RED CELL DISTRIBUTION WIDTH 12.9 % (11.5-14.5); WHITE BLOOD COUNT 3.7 10^3/uL (4.5-11.0)
[2018-08-11 08:17] LABS: ALT/SGPT < 6 U/L (7-56); AST/SGOT 22 U/L (14-36); BLOOD UREA NITROGEN 48 mg/dL (7-21); CALCIUM 8.4 mg/dL (8.4-10.5); GFR NON-AFRICAN AMERICAN 12
--- NOTE | 2018-08-11 08:35 | PN ---
DATE: 08/10/2018 SUBJECTIVE: This patient was seen and evaluated earlier. The patient's family was at bedside. The patient is tolerating the diet. No abdominal pain. The patient wants to eat more fiber, lettuce. PHYSICAL EXAMINATION: VITAL SIGNS: Temperature is 97.7, pulse 52, and blood pressure 126/57. HEENT: Atraumatic. Anicteric. NECK: Supple. HEART: S1 and S2 heard. LUNGS: Bilateral air entry present. ABDOMEN: Soft. No tenderness. NEUROLOGIC: Alert and oriented. LABORATORY DATA: Serum creatinine is stable, same 3.7. No other labs. IMPRESSION AND PLAN: This 67-year-old patient admitted with nausea, vomiting, and diarrhea, clinically suspicion of gastroenteritis, but CT showed some mesenteric streaking, pericolonic streaking in the left colon and sigmoid colon suggestive of possible diverticulitis. Since the patient has been on Flagyl and antibiotics, clinically much improved and tolerating solid diet. The patient does have a history of acute kidney injury on top of chronic kidney disease, being followed by back sewer and other comorbidities. The patient was advised to follow up on these. The patient would need an elective colonoscopy evaluation on completion of the antibiotic therapy. Dre Case MD
[2018-08-11] MEDS: Cefpodoxime (Vantin) 200 mg Tab PO SCH (09:34)
[2018-08-11] MEDS: FERROUS SULFATE 325 MG PO SCH ×2 (09:39→18:50)
--- NOTE | 2018-08-11 11:30 | CP.PCM.PN ---
<Flora Granger - Last Filed: 08/11/18 18:04> Subjective - Date & Time of Evaluation Date of Evaluation: 08/11/18 Time of Evaluation: 11:30 - Subjective Subjective: Flora Granger, PGY2, GI Progress Note for Dr Case: Patient seen and examined at bedside. No acute events overnight. Patient reports mild nausea this AM. Reports that she is tolerating low residue soft diet well otherwise. States that she has not had a bowel movement since and would like something to make her go. Objective - Vital Signs/Intake and Output Vital Signs (last 24 hours): Temp Pulse Resp BP Pulse Ox 97.9 F 68 20 125/74 95 08/11/18 06:00 08/11/18 06:00 08/11/18 06:00 08/11/18 09:33 08/11/18 06:00 Intake and Output: 08/11/18 08/11/18 06:59 18:59 Intake Total 840 Balance 840 - Medications Medications: Current Medications Amlodipine Besylate (Norvasc) 10 mg PO DAILY [facility] Last Admin: 08/11/18 09:33 Dose: 10 mg Calcitriol (Rocaltrol) 0.5 mcg PO DAILY [facility] Last Admin: 08/11/18 09:33 Dose: 0.5 mcg Cefpodoxime Proxetil (Vantin) 200 mg PO DAILY [facility] Last Admin: 08/11/18 09:34 Dose: 200 mg Docusate Sodium (Colace) 100 mg PO BID PRN PRN Reason: Constipation Last Admin: 08/11/18 09:35 Dose: 100 mg Ergocalciferol (Drisdol 50,000 Intl Units Cap) 1 cap PO Q7D [facility] Last Admin: 08/07/18 19:28 Dose: Not Given Home Med (Home Med) 1 unit PO BID [facility] Last Admin: 08/11/18 09:39 Dose: 1 unit Hydralazine HCl (Apresoline) 100 mg PO TID [facility] Last Admin: 08/11/18 09:34 Dose: 100 mg Isosorbide Mononitrate (Imdur Er) 30 mg PO DAILY [facility] Last Admin: 08/11/18 09:34 Dose: 30 mg Metronidazole (Flagyl) 500 mg PO Q8 [facility] Last Admin: 08/11/18 06:40 Dose: 500 mg Ondansetron HCl (Zofran Inj) 4 mg IVP Q8H PRN PRN Reason: Nausea/Vomiting Last Admin: 08/09/18 11:05 Dose: 4 mg Timolol Maleate (Timoptic 0.5% Ophth Soln) 1 drop OU BID [facility] Last Admin: 08/11/18 09:42 Dose: 1 drop - Labs Labs: 08/11/18 07:10 08/11/18 07:10 - Additional Findings Additional findings: - Constitutional Appears: Non-toxic, No Acute Distress - Head Exam Head Exam: ATRAUMATIC, NORMOCEPHALIC - Eye Exam Eye Exam: EOMI, PERRL. absent: Conjunctival injection, Nystagmus, Scleral icterus Pupil Exam: NORMAL ACCOMODATION, PERRL. absent: Irregular, Miosis, Unequal - ENT Exam ENT Exam: Mucous Membranes Moist - Neck Exam Neck Exam: Full ROM - Respiratory Exam Respiratory Exam: Clear to Ausculation Bilateral, NORMAL BREATHING PATTERN. absent: Accessory Muscle Use, Rhonchi, Wheezes, Respiratory Distress - Cardiovascular Exam Cardiovascular Exam: RRR, +S1, +S2. absent: Murmur - GI/Abdominal Exam GI & Abdominal Exam: Soft, Tenderness (mild), Normal Bowel Sounds. absent: Distended, Firm, Guarding, Rigid, Mass, Organomegaly - Extremities Exam Extremities Exam: Normal Inspection. absent: Calf Tenderness, Pedal Edema - Neurological Exam Neurological Exam: Alert, Awake, Oriented x3 - Psychiatric Exam Psychiatric exam: Normal Affect, Normal Mood - Skin Skin Exam: Normal Color, Warm Assessment and Plan - Assessment and Plan (Free Text) Assessment: # Nausea, vomiting, diarrhea 2/2 likely viral/bacterial gastroenteritis vs Cdiff # CHFrEF # HTN # iron deficiency anemia # QUENTIN on CKD # Constipation - CT abd/pelvis shows sigmoid diverticulosis w/o diverticulitis. - low residue, soft diet - cdiff, stool culture results negative - On PO Vantin and Flagyl, can d/c with cipro and flagyl - Offered patient Miralax for constipation, patient refused. Will start on col gui bid prn. If no BM with colace, can try dulcolax and lactulose x 1 time dose at night time. - Further recs per Dr Case. Case reviewed and discussed with Dr. Case <Dre Case V - Last Filed: 08/12/18 00:58> Objective - Vital Signs/Intake and Output Vital Signs (last 24 hours): Temp Pulse Resp BP Pulse Ox 98.2 F 46 L 18 158/73 H 98 08/11/18 22:04 08/11/18 22:04 08/11/18 22:04 08/11/18 22:04 08/11/18 22:04 Intake and Output: 08/11/18 08/12/18 18:59 06:59 Intake Total 1400 620 Balance 1400 620 - Medications Medications: Current Medications Amlodipine Besylate (Norvasc) 10 mg PO DAILY [facility] Last Admin: 08/11/18 09:33 Dose: 10 mg Calcitriol (Rocaltrol) 0.5 mcg PO DAILY [facility] Last Admin: 08/11/18 09:33 Dose: 0.5 mcg Cefpodoxime Proxetil (Vantin) 200 mg PO DAILY [facility] Last Admin: 08/11/18 09:34 Dose: 200 mg Docusate Sodium (Colace) 100 mg PO BID PRN PRN Reason: Constipation Last Admin: 08/11/18 09:35 Dose: 100 mg Ergocalciferol (Drisdol 50,000 Intl Units Cap) 1 cap PO Q7D [facility] Last Admin: 08/07/18 19:28 Dose: Not Given Home Med (Home Med) 1 unit PO BID [facility] Last Admin: 08/11/18 18:50 Dose: 1 unit Hydralazine HCl (Apresoline) 100 mg PO TID [facility] Last Admin: 08/11/18 18:44 Dose: 100 mg Isosorbide Mononitrate (Imdur Er) 30 mg PO DAILY [facility] Last Admin: 08/11/18 09:34 Dose: 30 mg Lactulose (Enulose) 10 gm PO HS PRN PRN Reason: Constipation Metronidazole (Flagyl) 500 mg PO Q8 [facility] Last Admin: 08/11/18 21:14 Dose: 500 mg Ondansetron HCl (Zofran Inj) 4 mg IVP Q8H PRN PRN Reason: Nausea/Vomiting Last Admin: 08/09/18 11:05 Dose: 4 mg Timolol Maleate (Timoptic 0.5% Ophth Soln) 1 drop OU BID [facility] Last Admin: 08/11/18 18:44 Dose: 1 drop - Labs Labs: 04/08/19 07:10 08/11/18 07:10 Attending/Attestation - Attestation I have personally seen and examined this patient.: Yes I have fully participated in the care of the patient.: Yes I have reviewed all pertinent clinical information, including history, physical exam and plan: Yes Notes (Text): This is an addendum to the GI progress report dictated by the resident. The patient was seen and evaluated with the resident earlier. Patient is tolerating the diet. Complains of constipation. We will start the patient on laxatives. Would completed 2 more days of antibiotic. Gastroenteritis with diverticulitis clinically improving Elective colonoscopy evaluation The drop in hemoglobin due to IV hydration we will follow-up on that 08/12/18 00:52
[2018-08-11] MEDS ORDERED: Bisacodyl 5mg EC Tab PO PRN (13:28)
[2018-08-11 13:33] LABS: IRON 59 ug/dL (45-180)
[2018-08-11 13:55] LABS: % IRON SATURATION 34 % (20-55); TOTAL IRON BINDING CAPACITY 175 ug/dL (265-497)
--- NOTE | 2018-08-11 14:40 | PN ---
DATE: 08/11/2018 SUBJECTIVE: A 67-year-old female resting comfortably in bed this morning. The patient states that yesterday she skipped dinner because her stomach was still a bit upset and this morning she says it feels a little bit better. She had some egg this morning and little bit of cheese. PHYSICAL EXAMINATION VITAL SIGNS: Her temperature is 97, pulse is 68, her blood pressure is 125/70, respiratory rate is 20 and oxygen sat is 95% on room air. GENERAL: She is alert and oriented x3. LUNGS: Clear. HEART: Has an S1 and S2 rhythm. ABDOMEN: Soft with positive bowel sounds. EXTREMITIES: Show no evidence of edema. LABORATORY DATA: Shows a WBC of 3.7, RBC 3.2, hemoglobin 8.9, hematocrit 27.7 and platelet count 177. Chemistry shows sodium of 139, potassium 4.3, chloride 107, BUN is 48 an the creatinine is 3.8. LFTs are normal. Phosphorus is 4.1 and magnesium is 2.1. The patient is receiving hydralazine, Colace, Drisdol, Flagyl, iron, Imdur, Norvasc, Rocaltrol, timolol, Vantin and Zofran p.r.n. She is felt to have had an acute gastroenteritis. She has chronic renal disease with an acute chronic anemia. She has a history of secondary hyperparathyroidism and hypertension. We will review with GI, the blood count findings and treatment plan I have discussed with the patient and she should speak with dietary regarding her diet and I have discussed this with the staff as well. We will follow up the patient's labs and continue current care at this time. Isha Park MD
[2018-08-11] MEDS ORDERED: Darbepoetin Alfa 60 mcg/ml Inj SC ONE (14:55)
--- NOTE | 2018-08-11 14:56 | CP.PCM.PCO ---
Additional Comments - Additional Comments Additional Comments: Treatment for diverticulitis, QUENTIN on CKD, dehydration,encourage PO fluid intake, renal following, continue antibiotics as per GI, patient is for possible D/C 08/12/18 repeat labs in am, reeval in am.
[2018-08-11 15:47] VITALS: O2SAT 98
--- NOTE | 2018-08-11 19:56 | PN ---
DATE: 08/11/2018 SUBJECTIVE: The patient is seen sitting in chair. She is awake. She is alert. She is comfortable. She denies any nausea or vomiting. She is tolerating p.o. intake. PHYSICAL EXAMINATION GENERAL: Elderly lady sitting in a chair. VITAL SIGNS: Blood pressure 134/73, heart rate 68, respiratory rate 20, temperature 97.9. HEENT: Normocephalic, atraumatic, positive pallor. NECK: Supple, no JVD. LUNGS: Bilateral equal air entry, bilateral equal expansion. CARDIOPULMONARY: S1, S2, regular rate and rhythm, no murmur, no rub. ABDOMEN: Obese, distended, soft, nontender, bowel sounds present. EXTREMITIES: Trace lower extremity edema. INTAKE AND OUTPUT: Not charted. LABORATORY DATA WBC 3.7, hemoglobin 8.9, hematocrit 27.7, platelets 177. Sodium 139, potassium 4.3, chloride 107, CO2 of 23, BUN 48, creatinine 3.8, glucose 81, calcium 8.4, phosphorus 4.1, magnesium 2.1. Iron saturation 34%. Albumin 3.0, creatinine clearance 31 mL per minute. Urine protein 114 mg per day. CURRENT MEDICATIONS: Apresoline 100 mg t.i.d., Colace 100 mg b.i.d., Drisdol 50,000 IU once a week, Flagyl 500 mg every 8 hours, Imdur 30 mg, amlodipine 10 mg, calcitriol 0.5 mg, Dilantin 200 mg daily, Zofran. ASSESSMENT 1. Acute kidney injury, superimposed on chronic kidney disease, stage IV. 2. Status post gastroenteritis, now controlled. 3. Anemia of chronic kidney disease. 4. Severe hypertension, hypertensive kidney disease. PLAN 1. Continue current antihypertensives. The patient's blood pressure seems to be very well controlled now. Suspect the patient does not take her medications faithfully at home because at home she is also supposed to be on olmesartan 20 mg daily, which is currently on hold at this time because of the acute kidney injury. 2. Advanced chronic kidney disease, stage IV. 3. Anemia of chronic kidney disease. Continue oral iron, Aranesp 60 mcg subcutaneous x1 dose. 4. Discussed with the patient will likely need renal replacement therapy in the future. 5. Discharge planning. Angela Crisostomo MD
[2018-08-11 21:16] LABS: FOLATE 6.5 ng/mL
[2018-08-12 07:42] VITALS: RESP 20
[2018-08-12 08:06] LABS: HEMOGLOBIN 9.3 g/dL (12.0-16.0); MEAN CELL VOLUME 85.6 fl (80.0-105.0); MEAN CORPUSCULAR HEMOGLOBIN 27.9 pg (25.0-35.0); MEAN CORPUSCULAR HGB CONC 32.6 g/dl (31.0-37.0); MEAN PLATELET VOLUME 9.4 fl (7.0-11.0); RBC 3.33 10^6/uL (3.5-6.1); RED CELL DISTRIBUTION WIDTH 13.1 % (11.5-14.5); WHITE BLOOD COUNT 3.9 10^3/uL (4.5-11.0)
[2018-08-12 08:18] LABS: ALB/GLOB RATIO 1.1 (1.1-1.8); ALBUMIN 3.2 g/dL (3.0-4.8); CALCIUM 8.8 mg/dL (8.4-10.5)
[2018-08-12] MEDS: Cefpodoxime (Vantin) 200 mg Tab PO SCH (10:53)
[2018-08-12] MEDS: FERROUS SULFATE 325 MG PO SCH (10:55)
[2018-08-12 14:49] VITALS: BP 135/81; PULSE 50; TEMP 98.3
--- NOTE | 2018-08-12 15:34 | PN ---
DATE: 08/12/2018 SUBJECTIVE: The patient is currently seen sitting up in bed. She is anticipating being discharged later today. No further GI symptoms. No nausea, vomiting or diarrhea. The patient's BUN and creatinine are slowly drifting back to baseline. Her BUN is down to 45 from a high of 55. Her creatinine is down to 3.4 from high of 4.1. The patient's 24-hour urine was consistent with chronic kidney disease stage 3 with no significant proteinuria. MEDICATIONS: Medication list reviewed. The patient is currently on hydralazine, Colace, vitamin D, Flagyl, which will be discontinued, iron, Imdur, Norvasc, Timoptic, Vantin which will likely be discontinued as well and Zofran. Olmesartan is on hold. OBJECTIVE: INTAKE AND OUTPUT: Intake is 2140, output is not charted. VITAL SIGNS: Blood pressure 137/67, temperature 98.6, respiratory rate 20 with a pulse of 64. HEENT: Shows her to be normocephalic, atraumatic. Conjunctivae are pink. Sclerae are nonicteric. NECK: Supple. No neck vein distention. CHEST: Clear to auscultation and percussion. No rales, rhonchi or wheezing. CARDIOVASCULAR: Shows a regular rate and rhythm without audible murmurs, rubs or gallops. ABDOMEN: Soft. Moderate obesity. Bowel sounds normal. No rebound, guarding or masses. EXTREMITIES: Show no lower extremity cyanosis, clubbing or edema. LABORATORY DATA AND IMAGING: CBC; white blood cell count today 3.9 stable, hemoglobin 9.3 with a platelet count of 193,000. Chemistry showed normal electrolytes. BUN is 45 with a creatinine of 3.4. These are improving. Glucose is 87. Calcium is 8.8. Last phosphorus was 4.1 and magnesium level of 2.1. Iron sats were 34%. B12 and folate levels were normal. Albumin is 3.2. Creatinine clearance again was 31 mL per minute with 114 mg of protein in the urine. ASSESSMENT: Acute renal failure superimposed on chronic kidney disease stage 3. The patient's baseline creatinine is in the 2.9 range. The patient will remain well hydrated upon discharge. I have asked her not to restart generic Benicar at this point in time. This decision will be made by Dr. Crisostomo pending her blood pressure control once her creatinine hits baseline, which is in the 2.9 range. Likely viral gastroenteritis. Uncertain as to the duration of antibiotic therapy from my standpoint, this could likely be discontinued. History of anemia secondary to chronic kidney disease. Hemoglobin is in the 9-10 range. Perhaps Procrit in the outpatient setting. Hypertension with hypertensive nephrosclerosis. Blood pressure control is acceptable on hydralazine and calcium channel clarissa. Again, we will hold angiotensin receptor clarissa therapy at this point in time. History of secondary hyperparathyroidism. Phosphorus levels remained normal. The patient will continue renal diet. She is currently not requiring binders. Obesity. Continue diet, exercise and weight loss. PLAN: 1. Discussed with Dr. Park and RN from my standpoint, the patient may be discharged home off generic Benicar. 2. I would hold Lasix and only use it on a p.r.n. basis for lower extremity edema. 3. Decision is to duration of antibiotics as per Dr. Park and Infectious Disease. 4. From my standpoint, discharge home is okay for later today. Yaakov Schwab MD MTDD
--- NOTE | 2018-08-12 18:39 | CP.PCM.PN ---
<Flora Granger - Last Filed: 08/12/18 18:37> Subjective - Date & Time of Evaluation Date of Evaluation: 08/12/18 Time of Evaluation: 10:00 - Subjective Subjective: Flora Granger, PGY2, GI Progress Note for Dr Case: Patient seen and examined at bedside. No acute events overnight. Patient tolerating PO diet well. Had 1 large BM after lactulose this AM. Denies abdominal pain, nausea, vomiting. Objective - Vital Signs/Intake and Output Vital Signs (last 24 hours): Temp Pulse Resp BP Pulse Ox 98.3 F 50 L 20 135/81 98 08/12/18 14:00 08/12/18 14:00 08/12/18 14:00 08/12/18 14:00 08/12/18 14:00 Intake and Output: 08/12/18 08/12/18 06:59 18:59 Intake Total 740 540 Balance 740 540 - Labs Labs: 08/12/18 07:45 08/12/18 07:45 - Additional Findings Additional findings: - Constitutional Appears: Non-toxic, No Acute Distress - Head Exam Head Exam: ATRAUMATIC, NORMOCEPHALIC - Eye Exam Eye Exam: EOMI, PERRL. absent: Conjunctival injection, Nystagmus, Scleral icterus Pupil Exam: NORMAL ACCOMODATION, PERRL. absent: Irregular, Miosis, Unequal - ENT Exam ENT Exam: Mucous Membranes Moist - Neck Exam Neck Exam: Full ROM - Respiratory Exam Respiratory Exam: Clear to Ausculation Bilateral, NORMAL BREATHING PATTERN. absent: Accessory Muscle Use, Rhonchi, Wheezes, Respiratory Distress - Cardiovascular Exam Cardiovascular Exam: RRR, +S1, +S2. absent: Murmur - GI/Abdominal Exam GI & Abdominal Exam: Soft, Tenderness (mild), Normal Bowel Sounds. absent: Distended, Firm, Guarding, Rigid, Mass, Organomegaly - Extremities Exam Extremities Exam: Normal Inspection. absent: Calf Tenderness, Pedal Edema - Neurological Exam Neurological Exam: Alert, Awake, Oriented x3 - Psychiatric Exam Psychiatric exam: Normal Affect, Normal Mood - Skin Skin Exam: Normal Color, Warm Assessment and Plan - Assessment and Plan (Free Text) Assessment: # Nausea, vomiting, diarrhea, resolved 2/2 likely viral/bacterial gastroenteritis, ruled out Cdiff # CHFrEF # HTN # iron deficiency anemia # QUENTIN on CKD # Constipation, resolving - CT abd/pelvis shows sigmoid diverticulosis w/o diverticulitis. - low residue, soft diet - cdiff, stool culture results negative - On PO Vantin and Flagyl, can d/c with cipro and flagyl - s/p lactulose x 1 gm and colace. - Further recs per Dr Case. Case reviewed and discussed with Dr. Case <Dre Case V - Last Filed: 08/13/18 00:50> Objective - Vital Signs/Intake and Output Vital Signs (last 24 hours): Temp Pulse Resp BP Pulse Ox 98.3 F 50 L 20 135/81 98 08/12/18 14:00 08/12/18 14:00 08/12/18 14:00 08/12/18 14:00 08/12/18 14:00 Intake and Output: 08/12/18 08/13/18 18:59 06:59 Intake Total 540 Balance 540 - Labs Labs: 08/12/18 07:45 08/12/18 07:45 Attending/Attestation - Attestation I have personally seen and examined this patient.: Yes I have fully participated in the care of the patient.: Yes I have reviewed all pertinent clinical information, including history, physical exam and plan: Yes Notes (Text): This is an addendum to the progress report dictated by the resident. Patient tolerating diet no abdominal discomfort. Patient would benefit from elective colonoscopy evaluation 08/13/18 00:50
--- NOTE | 2018-08-12 22:42 | DS ---
HOSPITAL COURSE: A 67-year-old female who was admitted to [facility] for 10 to 12 days of loose watery stools associated with nausea and vomiting. The patient was felt to have an acute gastroenteritis and was seen by Gastroenterology and she was also found to have an exacerbation of her underlying chronic kidney disease with an elevation in her BUN and creatinine and was followed by her nephrologists. She also has a history of arteriosclerotic heart disease and hypertension, chronic anemia, secondary hyperparathyroidism and glaucoma. She was treated for acute gastroenteritis, treated with antibiotics and clinically improved. Her renal functions are base on discharge. The creatinine was 3.4 with a BUN of 45. Electrolytes were normal. She had a CBC that showed WBC 3.9, RBC 3.33, hemoglobin 9.3, hematocrit 28.5, platelet count was 193. She received some Aranesp by the cafe attendant. She was cleared by all the individual consultants with recommendation for outpatient followup and will continue on hydralazine 100 mg t.i.d., Colace 70 mg b.i.d., Drisdol 1 capsule every seventh day. She would be on a PPI at home, Imdur 60 mg daily, Norvasc 10 mg daily, Rocaltrol 0.5 mcg daily, timolol eye drops 1 drop to the left eye b.i.d. She was advised to follow up as an outpatient. Isha Park MD
== END 2018-08-12 17:54 | disposition home or self-care (01) | DRG 392 ==
LOC: ED 07:12 → ERH 12:54 → 5RSO 14:18
PROVIDERS: ADMIT Internal Medicine; ATTEND Internal Medicine
DX: K52.9 Noninfective gastroenteritis and colitis, unspecified (principal); N17.9 Acute kidney failure, unspecified; I13.0 Hypertensive heart and chronic kidney disease with heart failure and stage 1 through stage 4 chronic kidney disease, or unspecified chronic kidney disease; Z68.41 Body mass index [BMI] 40.0-44.9, adult; N25.81 Secondary hyperparathyroidism of renal origin; N18.4 Chronic kidney disease, stage 4 (severe); I50.22 Chronic systolic (congestive) heart failure; E86.0 Dehydration; D63.1 Anemia in chronic kidney disease; E66.9 Obesity, unspecified; D50.9 Iron deficiency anemia, unspecified; I25.10 Atherosclerotic heart disease of native coronary artery without angina pectoris; K59.00 Constipation, unspecified; I44.0 Atrioventricular block, first degree; I44.7 Left bundle-branch block, unspecified; H40.9 Unspecified glaucoma; K57.30 Diverticulosis of large intestine without perforation or abscess without bleeding; Z79.82 Long term (current) use of aspirin; Z79.899 Other long term (current) drug therapy